=== PATIENT | female | born 1980 | race Caucasian/White ===

== ENCOUNTER 2016-11-08 05:29 | Day surgery (SDC) | payer MEDICAID, OTHER ==
[2016-11-04 11:03] LABS: HEMATOCRIT 43.1 % (36.0-47.0); HEMOGLOBIN 14.5 g/dL (12.0-15.5); HGB HCT DIFFERENCE 0.4; MEAN CORPUSCULAR HEMOGLOBIN 30.7 pg (27.0-33.4); MEAN CORPUSCULAR HGB CONC 33.7 g/dL (32.0-36.0); MEAN CORPUSCULAR VOLUME 91 fl (80-97); RED BLOOD COUNT 4.73 10^6/uL (3.72-5.28); RED CELL DISTRIBUTION WIDTH 13.1 % (11.5-14.0); WHITE BLOOD COUNT 12.5 10^3/uL (4.0-10.5)
[2016-11-04 11:22] LABS: APPEARANCE,URINE SLIGHTLY-CLOUDY; BILIRUBIN,URINE NEGATIVE (NEGATIVE); GLUCOSE, URINE NEGATIVE (NEGATIVE); KETONES,URINE NEGATIVE (NEGATIVE); LEUKOCYTE ESTERASE,URINE NEGATIVE (NEGATIVE); NITRITE,URINE NEGATIVE (NEGATIVE); PROTEIN,URINE NEGATIVE (NEGATIVE); URINE SPECIFIC GRAVITY 1.023; UROBILINOGEN,URINE NEGATIVE mg/dL (<2.0)
[2016-11-04 11:28] LABS: ALANINE AMINOTRANSFERASE 32 U/L (9-52); ALBUMIN 4.5 g/dL (3.5-5.0); ALKALINE PHOSPHATASE 60 U/L (38-126); ANION GAP 14 (5-19); ASPARTATE AMINO TRANSFERASE 20 U/L (14-36); BILIRUBIN,TOTAL 0.5 mg/dL (0.2-1.3); BLOOD UREA NITROGEN 16 mg/dL (7-20); CALCIUM 10.1 mg/dL (8.4-10.2); CARBON DIOXIDE 23 mmol/L (22-30); CHLORIDE 101 mmol/L (98-107); CREATININE RESULT 0.91 mg/dL (0.52-1.25); GLUCOSE 90 mg/dL (75-110); POTASSIUM 4.3 mmol/L (3.6-5.0); TOTAL PROTEIN 7.8 g/dL (6.3-8.2)
--- NOTE | 2016-11-04 18:07 | EKG REPORT ---
SEVERITY:- NORMAL ECG - SINUS RHYTHM : Confirmed by: Melissa Caballero MD 04-Nov-2016 18:06:43
[~2016-11-08 05:29] MED LIST: CEFAZOLIN 2 GM/D5W RTU 2 GM/50 ML RTUPB IV PRN; LACTATED RINGERS 1000 ML IV PRN; LIDOCAINE 0.5% INJ-PF (5 MG/ML) 50 ML SDV SUBCUT PRN
[2016-11-08] MEDS ORDERED: ALBUTEROL SULFATE 0.083% NEB 2.5 MG/3 ML AMPUL NEB ONE (06:16)
[2016-11-08] MEDS ORDERED: FENTANYL CITRATE INJ/PF 250 MCG/5 ML AMPULE ONE (06:27)
[2016-11-08] MEDS ORDERED: PROPOFOL INJ 200 MG/20 ML VIAL IV ONE (06:28)
[2016-11-08] MEDS ORDERED: MIDAZOLAM 2 MG/2 ML INJ ONE (06:28)
[2016-11-08] MEDS ORDERED: EPHEDRINE SULFATE INJ 50 MG/1 ML AMPULE ONE (06:28)
[2016-11-08] MEDS ORDERED: ACETAMINOPHEN 100 ML IV ONE ×3 (06:28→16:00)
[2016-11-08] MEDS ORDERED: FENTANYL CITRATE INJ/PF 100 MCG/2 ML AMPUL ONE ×2 (06:28→10:32)
[2016-11-08] MEDS ORDERED: DEXMEDETOMIDINE INJ 80 MCG/20 ML VIAL IV ONE (06:29)
[2016-11-08] MEDS ORDERED: MORPHINE SULFATE 10 MG/ML INJ ONE (06:29)
[2016-11-08] MEDS ORDERED: SCOPOLAMINE HYDROBROMIDE 1.5 MG PATCH.TD72 ONE (06:51)
[2016-11-08] MEDS ORDERED: FAMOTIDINE INJ/PF 20 MG/2 ML SDV IV ONE (06:52)
[2016-11-08] MEDS ORDERED: MORPHINE SULFATE 10 MG/ML INJ IV PRN (08:23)
[2016-11-08] MEDS ORDERED: DIPHENHYDRAMINE HCL 50 MG/ML VIAL IV PRN (08:23)
[2016-11-08] MEDS ORDERED: PROMETHAZINE HCL INJ 25 MG/1 ML VIAL IV PRN ×2 (08:23)
[2016-11-08] MEDS ORDERED: OXYCODONE-ACETAMINOPHEN 5-325 MG TABLET PO PRN ×2 (08:23)
[2016-11-08] MEDS ORDERED: MEPERIDINE HCL/PF INJ 25 MG/1 ML DISP.SYRIN IV PRN (08:23)
[2016-11-08] MEDS ORDERED: FENTANYL CITRATE INJ/PF 100 MCG/2 ML AMPUL IV PRN ×3 (08:23)
[2016-11-08] MEDS ORDERED: (PENDING PHARMACY ID) (Lisinopril/Hydrochlorothiazide [Lisinopril-Hctz 20-25 Mg Tab] 1 EAC PO SCH (10:00)
[2016-11-08] MEDS ORDERED: LEVOTHYROXINE SODIUM 300 MCG PO SCH (10:00)
--- NOTE | 2016-11-08 10:17 | Operative Report ---
Operative Report DATE OF SURGERY: 11/08/16 PREOPERATIVE DIAGNOSIS: Endometriosis pelvic pain dysmenorrhea POSTOPERATIVE DIAGNOSIS: Same OPERATION: ARIEL/BSO SURGEON: WILNER AGUSTIN ELECTROMATIC TYPIST: OR staff ANESTHESIA: GA TISSUE REMOVED OR ALTERED: Uterus tubes and ovaries COMPLICATIONS: None ESTIMATED BLOOD LOSS: 1 25 mL INTRAOPERATIVE FINDINGS: Normal female pelvis PROCEDURE: The patient was taken the OR and placed in supine position. Gen. anesthesia was induced. She is placed in a dorsal lithotomy position using Teofilo stirrups. She is placed in deep lithotomy position in preparation for robotic procedure. She did not tolerate the deep lithotomy. Anesthesia stated they could not do the case because of ventilation problems. We repositioned the patient into a supine position. Her vagina perineum and abdomen were prepared and draped in sterile fashion. A low transverse incision was made and carried down the level of fascia which was nicked in the midline. The fascial incision was extended bilaterally using curved Cuevas scissors. The fascia was off the rectus muscles using sharp and blunt dissection. Peritoneum was entered without incident. Peritoneal incision was extended taking care not to injure bladder. A Mobius retractor was placed. The bowel contents were packed back with 3 moist lap sponges. View of the pelvis was quite good. The ovaries were inspected bilaterally the ureters could be seen peristalsing well away from the pedicle sites. Next the uterus was grasped with Lyly thyroid clamp. The round ligaments were clamped and cauterized and ligated using the LigaSure device. The anterior leaf of the broad ligament was incised with Metzenbaum scissors creating a bladder flap. Bladder was sharply and bluntly dissected off the anterior aspect of the cervix. Posterior leaf was incised isolating the infundibulopelvic pedicles. The infundibulopelvic pedicles were clamped ligated and cut with the LigaSure device. The ovaries and tubes were passed off field. The broad ligament was then clamped cauterized and cut with the LigaSure device staying close to the uterine body. Uterine arteries were skeletonized bilaterally and then the uterine artery arteries were clamped cauterized and cut with LigaSure device. The cardinal ligaments were clamped cut and ligated bilaterally using straight Jessie clamps and transfixation suture of 0 Vicryl. Upon reaching the inferior portion of the cervix the vaginal angles were clamped bilaterally with curved Jessie clamps cut and ligated with transfixation suture of 0 Vicryl. The cervix was excised free from the vaginal cuff. Vaginal cuff was closed with a running locking layer of 0 Vicryl. Pelvis was irrigated and suctioned free fluid hemostasis was good at all pedicles. The ureters could be seen peristalsing and were not dilated in the pelvis. Lap sponges and Mobius retractor were removed. Anterior abdominal wall peritoneum was closed with a 2-0 chromic stitch. Subfascial tissues were inspected for bleeding and the fascia was closed with a running 0 Vicryl in 2 segments. Wound was irrigated and suctioned free of fluid hemostasis was assured. The subcutaneous layer was closed with a running suture of 20 plain gut. Skin was closed with a running subcuticular 4-0 undyed Vicryl stitch. Wound was dressed.
[2016-11-08] MEDS ORDERED: ONDANSETRON 4 MG TAB.RAPDIS SL PRN (11:09)
[2016-11-08] MEDS ORDERED: HYDROMORPHONE HCL INJ/PF 2 MG/ML AMPULE IV PRN ×4 (11:11→18:42)
[2016-11-08] MEDS ORDERED: HYDROMORPHONE HCL 2 MG TABLET PO PRN ×4 (11:12→12:01)
[2016-11-08] MEDS ORDERED: ONDANSETRON 4 MG TAB.RAPDIS PO PRN (11:56)
[2016-11-08] MEDS ORDERED: PHENYLEPHRINE HCL INJ/PF 10 MG/1 ML SDV ONE (12:25)
[2016-11-08] MEDS: HYDROMORPHONE HCL INJ/PF 2 MG/ML AMPULE IV PRN ×2 (12:25→17:31)
[2016-11-08] MEDS ORDERED: SUCCINYLCHOLINE CHLORIDE INJ 200 MG/10 ML VIAL ONE (12:25)
[2016-11-08] MEDS ORDERED: LIDOCAINE 2% INJ-PF (20 MG/ML) 10 ML AMPUL ONE (12:25)
[2016-11-08] MEDS ORDERED: GLYCOPYRROLATE INJ 0.4 MG/2 ML VIAL ONE (12:25)
[2016-11-08] MEDS ORDERED: ROCURONIUM BROMIDE INJ 50 MG/5 ML VIAL IV ONE (12:25)
[2016-11-08] MEDS ORDERED: DEXAMETHASONE SOD PHOSPHATE INJ 4 MG/1 ML VIAL ONE (12:25)
[2016-11-08] MEDS ORDERED: ONDANSETRON HCL INJ/PF 4 MG/2 ML SDV ONE (12:25)
[2016-11-08] MEDS ORDERED: NEOSTIGMINE METHYLSULFATE 10 MG/10 ML VIAL ONE (12:25)
[2016-11-08] MEDS ORDERED: KETOROLAC TROMETHAMINE 60 MG/2 ML SDV ONE (12:25)
[2016-11-08] MEDS ORDERED: RINGERS SOLUTION,LACTATED 1,000 ML IV PRN (12:30)
[2016-11-08] MEDS ORDERED: LEVOTHYROXINE SODIUM 0.15 MG TABLET PO ONE (13:00)
[2016-11-08] MEDS ORDERED: HYDROCHLOROTHIAZIDE 25 MG TABLET PO ONE (13:00)
[2016-11-08] MEDS ORDERED: LISINOPRIL 10 MG TABLET PO ONE (13:00)
[2016-11-08] MEDS: SERTRALINE HCL 50 MG TABLET PO SCH (13:01)
[2016-11-08] MEDS: VARENICLINE TARTRATE 0.5 MG TABLET PO SCH ×2 (13:01→17:48)
[2016-11-08] MEDS ORDERED: INFLUENZA ADLT QUAD (36MOS+) 2016-17 VAC 0.5 ML SYR IM PRN (15:04)
[2016-11-08 15:55] LABS: HEMOGLOBIN 13.2 g/dL (12.0-15.5); HGB HCT DIFFERENCE 0.6; MEAN CORPUSCULAR HGB CONC 33.9 g/dL (32.0-36.0); MEAN CORPUSCULAR VOLUME 91 fl (80-97); RED BLOOD COUNT 4.27 10^6/uL (3.72-5.28); RED CELL DISTRIBUTION WIDTH 13.3 % (11.5-14.0); WHITE BLOOD COUNT 16.3 10^3/uL (4.0-10.5)
[2016-11-08 16:21] LABS: ANION GAP 11 (5-19); BLOOD UREA NITROGEN 14 mg/dL (7-20); CALCIUM 9.6 mg/dL (8.4-10.2); CARBON DIOXIDE 25 mmol/L (22-30); CHLORIDE 101 mmol/L (98-107); CREATININE RESULT 0.97 mg/dL (0.52-1.25); GLUCOSE 135 mg/dL (75-110); POTASSIUM 4.6 mmol/L (3.6-5.0); SODIUM 137.1 mmol/L (137-145)
[2016-11-08] MEDS: ARIPIPRAZOLE 5 MG TABLET PO SCH (21:50)
[2016-11-08] MEDS: OXYCODONE-ACETAMINOPHEN 5-325 MG TABLET PO PRN (23:02)
[2016-11-09] MEDS: OXYCODONE-ACETAMINOPHEN 5-325 MG TABLET PO PRN ×3 (06:42→23:44)
[2016-11-09 07:21] LABS: HEMATOCRIT 36.9 % (36.0-47.0); HEMOGLOBIN 12.4 g/dL (12.0-15.5); HGB HCT DIFFERENCE 0.3; MEAN CORPUSCULAR HEMOGLOBIN 30.9 pg (27.0-33.4); MEAN CORPUSCULAR HGB CONC 33.6 g/dL (32.0-36.0); MEAN CORPUSCULAR VOLUME 92 fl (80-97); RED BLOOD COUNT 4.01 10^6/uL (3.72-5.28); RED CELL DISTRIBUTION WIDTH 13.1 % (11.5-14.0); WHITE BLOOD COUNT 17.6 10^3/uL (4.0-10.5)
[2016-11-09 07:36] LABS: ANION GAP 11 (5-19); BLOOD UREA NITROGEN 12 mg/dL (7-20); CALCIUM 9.4 mg/dL (8.4-10.2); CARBON DIOXIDE 24 mmol/L (22-30); CHLORIDE 102 mmol/L (98-107); CREATININE RESULT 0.94 mg/dL (0.52-1.25); GLUCOSE 144 mg/dL (75-110); POTASSIUM 4.3 mmol/L (3.6-5.0); SODIUM 137.1 mmol/L (137-145)
[2016-11-09] MEDS: SERTRALINE HCL 50 MG TABLET PO SCH (09:20)
[2016-11-09] MEDS: IBUPROFEN 800 MG TABLET PO SCH ×2 (09:21→17:42)
[2016-11-09] MEDS: VARENICLINE TARTRATE 0.5 MG TABLET PO SCH ×2 (09:23→17:43)
[2016-11-09] MEDS: LEVOTHYROXINE SODIUM 0.15 MG TABLET PO SCH (09:24)
[2016-11-09] MEDS: HYDROCHLOROTHIAZIDE 25 MG TABLET PO SCH (09:29)
[2016-11-09] MEDS: LISINOPRIL 10 MG TABLET PO SCH (09:29)
--- NOTE | 2016-11-09 09:54 | PDOC PROGRESS REPORT ---
Subjective Progress Note for:: 11/09/16 Subjective:: She is doing well today. Physical Exam - Physical Exam Vital Signs: Temp Pulse Resp BP Pulse Ox 98.1 F 55 L 17 88/52 L 96 11/09/16 08:21 11/09/16 08:21 11/09/16 08:21 11/09/16 08:21 11/09/16 08:21 Intake & Output 11/08/16 11/09/16 11/10/16 06:59 06:59 06:59 Intake Total 0 4735 Output Total 1025 Balance 0 3710 Weight 123.83 kg General appearance: PRESENT: no acute distress Head exam: PRESENT: atraumatic GI/Abdominal exam: PRESENT: normal bowel sounds, soft. ABSENT: distended, guarding, mass, organolmegaly, rebound, tenderness Result Laboratory Results: 11/09/16 06:25 11/09/16 06:25 11/08/16 11/08/16 11/09/16 15:40 15:40 06:25 WBC 16.3 H 17.6 H RBC 4.27 4.01 Hgb 13.2 12.4 Hct 39.0 36.9 MCV 91 92 MCH 31.0 30.9 MCHC 33.9 33.6 RDW 13.3 13.1 Plt Count 273 288 Sodium 137.1 Potassium 4.6 Chloride 101 Carbon Dioxide 25 Anion Gap 11 BUN 14 Creatinine 0.97 Est GFR ( Amer) > 60 Est GFR (Non-Af Amer) > 60 Glucose 135 H Calcium 9.6 11/09/16 06:25 WBC RBC Hgb Hct MCV MCH MCHC RDW Plt Count Sodium 137.1 Potassium 4.3 Chloride 102 Carbon Dioxide 24 Anion Gap 11 BUN 12 Creatinine 0.94 Est GFR ( Amer) > 60 Est GFR (Non-Af Amer) > 60 Glucose 144 H Calcium 9.4 Impressions: Chest X-Ray 11/04/16 10:17 IMPRESSION: NO SIGNIFICANT RADIOGRAPHIC FINDING IN THE CHEST. Assessment & Plan - Diagnosis (1) Pelvic pain Is this a current diagnosis for this admission?: YesPlan: continue care today and likely home tomorrow.
[2016-11-09] MEDS ORDERED: IBUPROFEN 800 MG TABLET PO SCH (10:00)
[2016-11-09] MEDS ORDERED: OXYCODONE-ACETAMINOPHEN 5-325 MG TABLET PO PRN (18:06)
[2016-11-09] MEDS ORDERED: BENZOCAINE/MENTHOL SORE THROAT LOZENGE BUCCAL PRN (18:07)
[2016-11-09] MEDS: ARIPIPRAZOLE 5 MG TABLET PO SCH (22:04)
--- NOTE | 2016-11-10 06:11 | PDOC PROGRESS REPORT ---
Subjective Progress Note for:: 11/10/16 Physical Exam - Physical Exam Vital Signs: Temp Pulse Resp BP Pulse Ox 98.0 F 62 16 92/48 L 96 11/10/16 04:00 11/10/16 04:00 11/10/16 04:00 11/10/16 04:00 11/10/16 04:00 Intake & Output 11/08/16 11/09/16 11/10/16 06:59 06:59 06:59 Intake Total 0 4735 900 Output Total 1025 600 Balance 0 3710 300 Weight 123.83 kg General appearance: PRESENT: no acute distress - Incision is clean dry and intact, well-developed, well-nourished Result Laboratory Results: 11/09/16 06:25 11/09/16 06:25 11/09/16 11/09/16 06:25 06:25 WBC 17.6 H RBC 4.01 Hgb 12.4 Hct 36.9 MCV 92 MCH 30.9 MCHC 33.6 RDW 13.1 Plt Count 288 Sodium 137.1 Potassium 4.3 Chloride 102 Carbon Dioxide 24 Anion Gap 11 BUN 12 Creatinine 0.94 Est GFR ( Amer) > 60 Est GFR (Non-Af Amer) > 60 Glucose 144 H Calcium 9.4 Impressions: Chest X-Ray 11/04/16 10:17 IMPRESSION: NO SIGNIFICANT RADIOGRAPHIC FINDING IN THE CHEST. Assessment & Plan - Diagnosis (1) Pelvic pain Is this a current diagnosis for this admission?: Yes - Plan Summary Plan Summary: She's doing well ambulating and taking oral pain medication. Plan is to discharge to home later today and follow up in 1 week.
--- NOTE | 2016-11-10 06:58 | DISCHARGE SUMMARY E ---
Discharge Summary NAME: MORELIA SR : 1980 AGE: 36Y ADMITTED: 11/08/2016 DISCHARGED: 11/09/2016 HOSPITAL COURSE: The patient was admitted on 11/08 for a hysterectomy. She has a history of endometriosis with pelvic pain. This was performed. Please see the operative report. Night of surgery, she did well. Following day, she continued to progress and was able to discharge home on postop day 2 in good condition. She will follow up in 2 weeks. Percocet and Premarin were given. DICTATING PHYSICIAN: WILNER CAI M.D. [id number] PHY#: [id number] ID: [id number] JOB#: [id number] ACCT: [id number] cc:WILNER CAI M.D. >
[2016-11-10] MEDS: OXYCODONE-ACETAMINOPHEN 5-325 MG TABLET PO PRN ×2 (07:54→14:50)
[2016-11-10] MEDS: IBUPROFEN 800 MG TABLET PO SCH (09:07)
[2016-11-10] MEDS: LISINOPRIL 10 MG TABLET PO SCH (09:07)
[2016-11-10] MEDS: SERTRALINE HCL 50 MG TABLET PO SCH (09:07)
[2016-11-10] MEDS: LEVOTHYROXINE SODIUM 0.15 MG TABLET PO SCH (09:08)
[2016-11-10] MEDS: VARENICLINE TARTRATE 0.5 MG TABLET PO SCH (09:08)
[2016-11-10] MEDS: HYDROCHLOROTHIAZIDE 25 MG TABLET PO SCH (09:08)
[2016-11-10 16:23] VITALS: BP 92/48
== END 2016-11-10 17:30 | disposition home or self-care (01) ==
LOC: OROUT 05:29 → 2N 11:14 → OROUT 11-10 17:30
PROVIDERS: ATTEND Obstetrics & Gynecology
PROC: 0UTC0ZZ Resection of Cervix, Open Approach (ICD-10-PCS; 2016-11-08)
PROC: 0UT20ZZ Resection of Bilateral Ovaries, Open Approach (ICD-10-PCS; 2016-11-08)
PROC: 0UT70ZZ Resection of Bilateral Fallopian Tubes, Open Approach (ICD-10-PCS; 2016-11-08)
PROC: 0UT90ZZ Resection of Uterus, Open Approach (ICD-10-PCS; principal; 2016-11-08 07:30)
DX: N72 Inflammatory disease of cervix uteri (principal); N80.0 Endometriosis of uterus; N73.6 Female pelvic peritoneal adhesions (postinfective); N83.8 Other noninflammatory disorders of ovary, fallopian tube and broad ligament; N80.2 Endometriosis of fallopian tube; R10.2 Pelvic and perineal pain; Z23 Encounter for immunization; I10 Essential (primary) hypertension; F17.210 Nicotine dependence, cigarettes, uncomplicated; Z79.899 Other long term (current) drug therapy; J45.909 Unspecified asthma, uncomplicated; M19.90 Unspecified osteoarthritis, unspecified site
CPT/HCPCS: 93005; 86900; 86901; 36415 ×2; 86850; 84132; 85027 ×2; 81025; 80048; 80053; 81001; 88307 ×2; 71020; 90686; 93010; 94640; 58150; J2250; J3490 ×18; J1100; J1885; J3010 ×2; J2270; J1170 ×2; J2370; J0330; J2405; J2704; S0028; J0690; J0131; 840

== ENCOUNTER 2016-12-11 18:11 | Inpatient (IN) | payer MEDICAID ==
[2016-12-11] MEDS ORDERED: VANCOMYCIN HCL INJ 1000 MG VIAL IV ONE (18:32)
[2016-12-11] MEDS ORDERED: AMPICILLIN SOD/SULBACTAM 3 GM VIAL IV ONE (18:33)
[2016-12-11] MEDS ORDERED: NORMAL SALINE 1000 ML 1,000 ML IV ONE (18:33)
--- NOTE | 2016-12-11 18:42 | ER Document Report ---
ED Medical Screen (RME) - General Chief Complaint: Post Surgical Pain Stated Complaint: POST OP PROBLEM TRAVEL OUTSIDE OF THE [place] IN LAST 30 DAYS: No - HPI Patient complains to provider of: wound dehiscence abdominal pain Notes: 12/11/16 18:41 Hysterectomy October now having difficulty with the wound. Patient is very obese - Related Data Allergies/Adverse Reactions: No Known Allergies Allergy (Verified 12/11/16 18:14) Past Medical History - Past Medical History Cardiac Medical History: Reports: Hx Hypertension Denies: Hx Coronary Artery Disease, Hx Heart Attack Pulmonary Medical History: Reports: Hx Asthma, Hx Bronchitis Denies: Hx COPD, Hx Pneumonia Neurological Medical History: Denies: Hx Cerebrovascular Accident, Hx Seizures Renal/ Medical History: Denies: Hx Peritoneal Dialysis Musculoskeltal Medical History: Reports Hx Arthritis - Generalized - Immunizations Hx Diphtheria, Pertussis, Tetanus Vaccination: Yes - Tetanus Review of Systems - Review of Systems Constitutional: Other - Postop wound troubles Physical Exam - Vital signs Vitals: Temp Pulse Resp BP Pulse Ox 98.3 F 93 17 128/103 H 100 12/11/16 18:16 12/11/16 18:16 12/11/16 18:16 12/11/16 18:16 12/11/16 18:16 - Abdominal Inspection: Obese - No increased pain this with red streaking from hysterectomy site Course - Vital Signs Vital signs: Temp Pulse Resp BP Pulse Ox 98.3 F 93 17 128/103 H 100 12/11/16 18:16 12/11/16 18:16 12/11/16 18:16 12/11/16 18:16 12/11/16 18:16
[2016-12-11 18:45] LABS: ABSOLUTE BASOPHILS # (AUTO) 0.1 10^3/uL (0.0-0.2); ABSOLUTE EOSINOPHILS # (AUTO) 0.8 10^3/uL (0.0-0.6); ABSOLUTE MONOCYTES (AUTO) 1.1 10^3/uL (0.1-1.4); ABSOLUTE NEUT (AUTO) 4.8 10^3/uL (1.7-8.2); BASOPHILS % (AUTO) 0.6 % (0-2); EOSINOPHILS % (AUTO) 8.6 % (0-6); HEMATOCRIT 40.4 % (36.0-47.0); HEMOGLOBIN 13.7 g/dL (12.0-15.5); HGB HCT DIFFERENCE 0.7; LYMPHOCYTES % (AUTO) 30.6 % (13-45); MEAN CORPUSCULAR HEMOGLOBIN 31.1 pg (27.0-33.4); MEAN CORPUSCULAR HGB CONC 33.9 g/dL (32.0-36.0); MEAN CORPUSCULAR VOLUME 92 fl (80-97); MONOCYTES % (AUTO) 10.9 % (3-13); RED BLOOD COUNT 4.39 10^6/uL (3.72-5.28); RED CELL DISTRIBUTION WIDTH 13.8 % (11.5-14.0); SEGMENTED NEUTROPHILS % (AUTO) 49.3 % (42-78); WHITE BLOOD COUNT 9.8 10^3/uL (4.0-10.5)
--- NOTE | 2016-12-11 18:49 | ER Document Report ---
ED GI/ - General Chief Complaint: Post Surgical Pain Stated Complaint: POST OP PROBLEM Notes: Patient is a 36-year-old female who presents emergency Department with complaints of incision dehiscence. Patient is postop from total abdominal hysterectomy on 11/08/[address] Jimy Carr here in [facility]. She states that she did well at her initial follow-up visit that was postop week on and otherwise has been at home. She states that she noticed wound dehiscence about 6 days ago and the second one she is not quite sure. She states that she's had redness spreading from her incision over the past 6 days that's causing pain. She denies any deep abdominal pain denies any nausea or vomiting, constipation or diarrhea. Last bowel movement was this morning and was normal. She denies any fevers but she admits to chills. TRAVEL OUTSIDE OF THE [place] IN LAST 30 DAYS: No - Related Data Allergies/Adverse Reactions: No Known Allergies Allergy (Verified 12/11/16 18:14) Past Medical History - Social History Smoking Status: Current Every Day Smoker Family History: Reviewed & Not Pertinent Patient has suicidal ideation: No Patient has homicidal ideation: No - Past Medical History Cardiac Medical History: Reports: Hx Hypertension Denies: Hx Coronary Artery Disease, Hx Heart Attack Pulmonary Medical History: Reports: Hx Asthma, Hx Bronchitis Denies: Hx COPD, Hx Pneumonia Neurological Medical History: Denies: Hx Cerebrovascular Accident, Hx Seizures Renal/ Medical History: Denies: Hx Peritoneal Dialysis Musculoskeltal Medical History: Reports Hx Arthritis - Generalized - Immunizations Hx Diphtheria, Pertussis, Tetanus Vaccination: Yes - Tetanus Review of Systems - Review of Systems Constitutional: No symptoms reported Gastrointestinal: No symptoms reported Skin: See HPI Physical Exam - Vital signs Vitals: Temp Pulse Resp BP Pulse Ox 98.3 F 93 17 128/103 H 100 12/11/16 18:16 12/11/16 18:16 12/11/16 18:16 12/11/16 18:16 12/11/16 18:16 - Notes Notes: PHYSICAL EXAM GENERAL: Alert, interacts well. HEAD: Normocephalic, atraumatic. EYES: Pupils equal, round, and reactive to light. Extraocular movements intact. ENT: Oral mucosa moist, tongue midline. NECK: Full range of motion. Supple. Trachea midline. LUNGS: Clear to auscultation bilaterally, no wheezes, rales, or rhonchi. No respiratory distress. HEART: Regular rate and rhythm. No murmurs, gallops, or rubs. ABDOMEN: Soft, nondistended, nontender. No guarding, rebound, or rigidity.. Bowel sounds present in all 4 quadrants. EXTREMITIES: Moves all 4 extremities spontaneously. No edema, radial and dorsalis pedis pulses 2/4 bilaterally. No cyanosis. NEUROLOGICAL: Alert and oriented x4. Normal speech. PSYCH: Normal affect, normal mood. SKIN: Warm, dry, normal turgor. Evidence of wound dehiscence at the lateral edges of the hysterectomy incision. Both wound has since his are no more than 1 inch in length with visible TM/clear drainage. Tender to touch. Surrounding cellulitis expanding over her entire pannus up to her belly button into both hips. Course - Re-evaluation Re-evalutation: 12/11/16 22:05 Patient is a 36-year-old female is hemodynamically stable, no acute distress and afebrile. Patient was sent over from [facility] where laboratory studies as well as CT scan were ordered. CT of the abdomen and pelvis reveals 2 fluid-filled spaces of the subcutaneous tissue with surrounding cellulitis. Both of these fluid-filled areas are no greater than 2 x 3 cm. After these findings are discussed with supervising physician Dr. Jaciel Pena who is recommended consultation to [employer]IC[employer]ED [employer]UCLE[employer] CONTR[employer] ROOM OPERATOR on-call. I have called Dr. Olga Sheikh to discuss findings a CT as well as physical exam findings, she agrees with hospital admission for evaluation of her complaint as well as IV antibiotics. Discussed this plan with patient who is agreeable. At this time she still remained stable will admit to second floor. Per [facility] protocol and guidelines, this case was discussed with supervising physician Dr. Jaciel Pena prior to admission - Vital Signs Vital signs: Temp Pulse Resp BP Pulse Ox 98.3 F 86 16 118/71 100 12/11/16 20:46 12/11/16 20:46 12/11/16 20:46 12/11/16 20:46 12/11/16 18:16 - Laboratory Result Diagrams: 12/11/16 18:35 12/11/16 18:35 Laboratory results interpreted by me: 12/11/16 12/11/16 18:35 18:55 Eosinophils % 8.6 H Absolute Eosinophils 0.8 H Urine Blood SMALL H Ur Leukocyte Esterase TRACE H - Diagnostic Test Radiology reviewed: Image reviewed, Reports reviewed Discharge - Discharge Clinical Impression: Cellulitis, Abscess Disposition: ADMITTED INPATIENT Admitting Provider: [facility] Admitted: Medical Floor - second floor per Dr. Sheikh
[2016-12-11 18:59] LABS: PROTHROMBIN TIME 11.8 SEC (11.4-15.4)
[2016-12-11 19:04] LABS: ALANINE AMINOTRANSFERASE 37 U/L (9-52); ALBUMIN 4.3 g/dL (3.5-5.0); ALKALINE PHOSPHATASE 66 U/L (38-126); ANION GAP 10 (5-19); ASPARTATE AMINO TRANSFERASE 27 U/L (14-36); BILIRUBIN,DIRECT 0.2 mg/dL (0.0-0.4); BILIRUBIN,TOTAL 0.7 mg/dL (0.2-1.3); BLOOD UREA NITROGEN 14 mg/dL (7-20); CALCIUM 9.9 mg/dL (8.4-10.2); CARBON DIOXIDE 28 mmol/L (22-30); CHLORIDE 106 mmol/L (98-107); GLUCOSE 100 mg/dL (75-110); LIPASE 111.4 U/L (23-300); POTASSIUM 4.1 mmol/L (3.6-5.0); SODIUM 143.6 mmol/L (137-145); TOTAL PROTEIN 7.4 g/dL (6.3-8.2)
[2016-12-11 19:51] LABS: APPEARANCE,URINE SLIGHTLY-CLOUDY; BILIRUBIN,URINE NEGATIVE (NEGATIVE); GLUCOSE, URINE NEGATIVE (NEGATIVE); KETONES,URINE NEGATIVE (NEGATIVE); LEUKOCYTE ESTERASE,URINE TRACE (NEGATIVE); NITRITE,URINE NEGATIVE (NEGATIVE); PROTEIN,URINE NEGATIVE (NEGATIVE); URINE SPECIFIC GRAVITY 1.026; UROBILINOGEN,URINE NEGATIVE mg/dL (<2.0)
[2016-12-11] MEDS ORDERED: MORPHINE SULFATE 10 MG/ML INJ IV ONE (20:38)
[2016-12-12] MEDS ORDERED: IBUPROFEN 600 MG TABLET PO PRN (01:08)
[2016-12-12] MEDS: RINGERS SOLUTION,LACTATED 1,000 ML IV PRN ×3 (01:30→22:14)
[2016-12-12] MEDS: OXYCODONE-ACETAMINOPHEN 5-325 MG TABLET PO PRN ×3 (01:30→18:00)
[2016-12-12] MEDS: ZOLPIDEM TARTRATE 5 MG TABLET PO PRN (02:04)
--- NOTE | 2016-12-12 02:04 | PDOC H&P ---
History of Present Illness Admission Date/PCP: 12/11/16 20:34 ENOCH BOSS MD Patient complains of: abdominal pain and incisional drainage History of Present Illness: MORELIA SR is a 36 year old female P4 who is s/p [facility] 11/08/16 who presents with history of drainage beginning last week with worsening pain under naval. Her post op appointment is scheduled for [facility] 12/12/16. She did not call MD about the drainage. She reports no bleeding, fever, nausea, vomiting, diarrhea, constipation, urinary symptoms. She denies any other symptoms as well. Past Medical History Cardiac Medical History: Reports: Hypertension Denies: Coronary Artery Disease, Myocardial Infarction Pulmonary Medical History: Reports: Asthma, Bronchitis Denies: Chronic Obstructive Pulmonary Disease (COPD), Pneumonia Neurological Medical History: Denies: Seizures Endocrine Medical History: Reports: Hypothyroidism Musculoskeltal Medical History: Reports: Arthritis - Generalized Psychiatric Medical History: Reports: Depression Past Surgical History Past Surgical History: Reports: Hysterectomy Social History Smoking Status: Current Every Day Smoker Cigarettes Packs Per Day: 0.5 Number of Years Smokin Last Time Smoked: 12/11/2016 Frequency of Alcohol Use: Occasional Hx Recreational Drug Use: No Drugs: None Hx Prescription Drug Abuse: No - Advance Directive Resuscitation Status: Full Code Family History Family History: Reviewed & Not Pertinent Parental Family History Reviewed: Yes Children Family History Reviewed: Yes Sibling(s) Family History Reviewed.: Yes Medication/Allergy Home Medications: Aripiprazole [Abilify 5 mg Tablet] 5 mg PO QHS 11/09/16 Levothyroxine Sodium [Synthroid] 300 mcg PO DAILY 11/09/16 Lisinopril/Hydrochlorothiazide [Lisinopril-Hctz 20-25 mg Tab] 1 each PO DAILY Meloxicam [Mobic 15 mg Tablet] 15 mg PO DAILY 11/09/16 Sertraline HCl [Zoloft] 100 mg PO DAILY 11/09/16 Varenicline Tartrate [Chantix] 1 each PO .ASDIR 11/09/16 Allergies/Adverse Reactions: No Known Allergies Allergy (Verified 12/11/16 18:14) Review of Systems All systems: reviewed and no additional remarkable complaints except as stated - as above Physical Exam - Physical Exam Vital Signs: Temp Pulse Resp BP Pulse Ox 98.1 F 82 20 119/78 99 12/11/16 21:49 12/11/16 21:49 12/11/16 21:49 12/11/16 21:49 12/11/16 21:49 Intake & Output 12/10/16 12/11/16 12/12/16 06:59 06:59 06:59 Weight 130.4 kg General appearance: PRESENT: no acute distress, cooperative Respiratory exam: PRESENT: clear to auscultation alicia Cardiovascular exam: PRESENT: RRR GI/Abdominal exam: PRESENT: normal bowel sounds, soft, tenderness - minmal tenderness over erythema which extends from superior incision almost to naval. Incision is intact except for 2 areas bilaterally each 1-2 cm. no active drainage now.. ABSENT: distended, guarding, mass, organolmegaly, rebound Result Impressions: Abdomen/Pelvis CT 12/11/16 18:32 IMPRESSION: Small 2 x 3 cm fluid pockets are present left and right of midline in the subcutaneous soft tissue near the previous incision. No definite abscess. Otherwise no acute intra-abdominal findings. Assessment & Plan - Diagnosis (1) Cellulitis, wound, post-operative Qualifiers: Encounter type: subsequent encounter Qualified Code(s): T81.4XXD - Infection following a procedure, subsequent encounter Is this a current diagnosis for this admission?: YesPlan: iv antibiotics as well as pain mgmt. - Time Time Spent: 30 to 50 Minutes Critical Time spent with patient: Less than 15 minutes Medications reviewed and adjusted accordingly: Yes - Inpatient Certification Based on my medical assessment, after consideration of the patient's comorbidities, presenting symptoms, or acuity I expect that the services needed warrant INPATIENT care.: Yes I certify that my determination is in accordance with my understanding of Medicare's requirements for reasonable and necessary INPATIENT services [42 CFR 412.3e].: Yes Medical Necessity: Need Close Monitoring Due to Risk of Patient Decompensation, Need For IV Fluids, Need for Pain Control, Need for IV Antibiotics, Risk of Complication if Not Cared For in Hospital
[2016-12-12] MEDS ORDERED: CEFAZOLIN 2 GM/D5W RTU 50 ML IV SCH (06:00)
[2016-12-12 06:46] LABS: ABSOLUTE BASOPHILS # (AUTO) 0.1 10^3/uL (0.0-0.2); ABSOLUTE EOSINOPHILS # (AUTO) 0.9 10^3/uL (0.0-0.6); ABSOLUTE LYMPHOCYTES (AUTO) 2.4 10^3/uL (0.5-4.7); ABSOLUTE NEUT (AUTO) 4.2 10^3/uL (1.7-8.2); BASOPHILS % (AUTO) 0.7 % (0-2); EOSINOPHILS % (AUTO) 10.3 % (0-6); HEMATOCRIT 36.8 % (36.0-47.0); HEMOGLOBIN 12.5 g/dL (12.0-15.5); HGB HCT DIFFERENCE 0.7; LYMPHOCYTES % (AUTO) 28.3 % (13-45); MEAN CORPUSCULAR HEMOGLOBIN 31.5 pg (27.0-33.4); MEAN CORPUSCULAR HGB CONC 33.8 g/dL (32.0-36.0); MEAN CORPUSCULAR VOLUME 93 fl (80-97); MONOCYTES % (AUTO) 11.3 % (3-13); RED BLOOD COUNT 3.95 10^6/uL (3.72-5.28); RED CELL DISTRIBUTION WIDTH 13.9 % (11.5-14.0); SEGMENTED NEUTROPHILS % (AUTO) 49.4 % (42-78); WHITE BLOOD COUNT 8.5 10^3/uL (4.0-10.5)
[2016-12-12] MEDS ORDERED: SUCCINYLCHOLINE CHLORIDE INJ 200 MG/10 ML VIAL ONE (08:38)
[2016-12-12] MEDS ORDERED: ONDANSETRON HCL INJ/PF 4 MG/2 ML SDV ONE (08:38)
[2016-12-12] MEDS ORDERED: ROCURONIUM BROMIDE INJ 50 MG/5 ML VIAL IV ONE (08:38)
[2016-12-12] MEDS ORDERED: GLYCOPYRROLATE INJ 0.4 MG/2 ML VIAL ONE (08:38)
[2016-12-12] MEDS ORDERED: METOCLOPRAMIDE HCL INJ/PF 10 MG/2 ML SDV ONE (08:38)
[2016-12-12] MEDS ORDERED: NEOSTIGMINE METHYLSULFATE 10 MG/10 ML VIAL ONE (08:38)
[2016-12-12] MEDS ORDERED: LIDOCAINE 2% INJ-PF (20 MG/ML) 10 ML AMPUL ONE (08:38)
--- NOTE | 2016-12-12 09:57 | PDOC PROGRESS REPORT ---
Subjective Progress Note for:: 12/12/16 Subjective:: no n/v/d. denies fever, continues to c/o abdominal pain. Physical Exam - Physical Exam Vital Signs: Temp Pulse Resp BP Pulse Ox 98.1 F 76 16 113/76 97 12/12/16 08:21 12/12/16 08:21 12/12/16 08:21 12/12/16 08:21 12/12/16 08:21 Intake & Output 12/11/16 12/12/16 12/13/16 06:59 06:59 06:59 Weight 130.4 kg General appearance: PRESENT: no acute distress, well-developed, well-nourished Respiratory exam: PRESENT: clear to auscultation alicia, symmetrical Cardiovascular exam: PRESENT: RRR. ABSENT: diastolic murmur, rubs, systolic murmur Pulses: PRESENT: other - nl, no SCDs on GI/Abdominal exam: PRESENT: normal bowel sounds, tenderness - thourghout abdomen ttp - superficial ttp, firm area surrounding Rectal exam: PRESENT: deferred Extremities exam: PRESENT: full ROM. ABSENT: calf tenderness, clubbing, pedal edema Neurological exam: PRESENT: alert, awake, oriented to person, oriented to place , oriented to time, oriented to situation, CN II-XII grossly intact. ABSENT: motor sensory deficit Psychiatric exam: PRESENT: appropriate affect, normal mood. ABSENT: homicidal ideation, suicidal ideation Skin exam: PRESENT: erythema, mottled - warm mottled appearance to lower abd with induration at incision. some streaking extending above incision to umbilicus, warm Result Laboratory Results: 12/12/16 06:42 12/12/16 06:42 WBC 8.5 RBC 3.95 Hgb 12.5 Hct 36.8 MCV 93 MCH 31.5 MCHC 33.8 RDW 13.9 Plt Count 184 Seg Neutrophils % 49.4 Lymphocytes % 28.3 Monocytes % 11.3 Eosinophils % 10.3 H Basophils % 0.7 Absolute Neutrophils 4.2 Absolute Lymphocytes 2.4 Absolute Monocytes 1.0 Absolute Eosinophils 0.9 H Absolute Basophils 0.1 Impressions: Abdomen/Pelvis CT 12/11/16 18:32 IMPRESSION: Small 2 x 3 cm fluid pockets are present left and right of midline in the subcutaneous soft tissue near the previous incision. No definite abscess. Otherwise no acute intra-abdominal findings. Status: Imported from PACS Assessment & Plan - Diagnosis (1) Cellulitis, wound, post-operative Qualifiers: Encounter type: subsequent encounter Qualified Code(s): T81.4XXD - Infection following a procedure, subsequent encounter Is this a current diagnosis for this admission?: YesPlan: Pt is currently on Ancef. Will change to Zosyn. D/w pt that may need to open incision to drain fluid present as not on CT scan. D/w Provider who operated on pt for ARIEL/BSO on 11/08/2016. He agrees with change of abx and would like Sugicalist consult to evaluate if wound needs to be opened. Will notify surgicalist consult. Appreciate their assistance with patient. Home meds continued. SCDs requested. - Time Time Spent with patient: Less than 15 minutes Medications reviewed and adjusted accordingly: Yes Anticipated discharge: Home Within: within 48 hours - Inpatient Certification Based on my medical assessment, after consideration of the patient's comorbidities, presenting symptoms, or acuity I expect that the services needed warrant INPATIENT care.: Yes I certify that my determination is in accordance with my understanding of Medicare's requirements for reasonable and necessary INPATIENT services [42 CFR 412.3e].: Yes Medical Necessity: Significant Comorbidiites Make Outpatient Treatment Too Risky , Need for IV Antibiotics Post Hospital Care: D/C Adult Education Instructor Documentation
[2016-12-12] MEDS: PIPERACILLIN SODIUM/TAZOBACTAM 3.375 GM in NORMAL SALINE 100 ML IV SCH ×2 (12:10→18:54)
[2016-12-12] MEDS ORDERED: BUPIVACAINE HCL 0.25 % INJ/PF (2.5 MG/1 ML) 30 ML VIAL ONE (16:03)
[2016-12-12] MEDS ORDERED: FENTANYL CITRATE INJ/PF 250 MCG/5 ML AMPULE ONE (16:05)
[2016-12-12] MEDS ORDERED: PROPOFOL INJ 200 MG/20 ML VIAL IV ONE (16:06)
[2016-12-12] MEDS ORDERED: ACETAMINOPHEN 0 ML IV ONE (16:06)
[2016-12-12] MEDS ORDERED: MIDAZOLAM 2 MG/2 ML INJ ONE (16:06)
[2016-12-12] MEDS ORDERED: MORPHINE SULFATE 10 MG/ML INJ ONE (16:07)
[2016-12-12] MEDS ORDERED: CEFAZOLIN INJ 1 GM VIAL ONE (16:21)
--- NOTE | 2016-12-12 16:50 | Operative Report ---
Operative Report DATE OF SURGERY: 12/12/16 PREOPERATIVE DIAGNOSIS: Wound cellulitis POSTOPERATIVE DIAGNOSIS: Wound abscess with cellulitis OPERATION: Incision and drainage of wound abscess SURGEON: WILNER AGUSTIN POURER OFF: TORSTEN MAYNARD ANESTHESIA: GA TISSUE REMOVED OR ALTERED: None COMPLICATIONS: None ESTIMATED BLOOD LOSS: none INTRAOPERATIVE FINDINGS: Small wound abscess and a midline incision above the fascia. The fascia is intact PROCEDURE: Patient was taken the OR and placed in supine position. Anesthesia was induced. Her abdomen was prepared and draped in sterile fashion. Her Pfannenstiel incision was opened in the midline opening the wound abscess. The fascia was intact. Some subcutaneous sutures were removed. The area was rinsed with saline and divided. The tissue appears healthy. The cavity was then packed with iodoform gauze. The packing material placed was in one continuous piece. The wound was dressed. She is extubated and taken to recovery room stable condition. The length of the wound incision was approximately 9 cm.
[2016-12-12] MEDS: IBUPROFEN 800 MG TABLET PO SCH (18:53)
[2016-12-12] MEDS ORDERED: HYDROMORPHONE HCL INJ/PF 2 MG/ML AMPULE IV PRN (21:00)
[2016-12-12] MEDS: ARIPIPRAZOLE 5 MG TABLET PO SCH (22:13)
[2016-12-13] MEDS: PIPERACILLIN SODIUM/TAZOBACTAM 3.375 GM in NORMAL SALINE 100 ML IV SCH ×5 (05:49→17:24)
[2016-12-13] MEDS: OXYCODONE-ACETAMINOPHEN 5-325 MG TABLET PO PRN ×3 (05:49→21:56)
[2016-12-13] MEDS: LEVOTHYROXINE SODIUM 0.15 MG TABLET PO SCH (05:50)
[2016-12-13] MEDS: RINGERS SOLUTION,LACTATED 1,000 ML IV PRN ×2 (05:51→15:02)
[2016-12-13 05:56] LABS: ABSOLUTE EOSINOPHILS # (AUTO) 0.4 10^3/uL (0.0-0.6); ABSOLUTE LYMPHOCYTES (AUTO) 0.7 10^3/uL (0.5-4.7); ABSOLUTE MONOCYTES (AUTO) 0.2 10^3/uL (0.1-1.4); ABSOLUTE NEUT (AUTO) 7.1 10^3/uL (1.7-8.2); BASOPHILS % (AUTO) 0.3 % (0-2); EOSINOPHILS % (AUTO) 4.3 % (0-6); HEMATOCRIT 36.3 % (36.0-47.0); HEMOGLOBIN 12.3 g/dL (12.0-15.5); HGB HCT DIFFERENCE 0.6; LYMPHOCYTES % (AUTO) 8.1 % (13-45); MEAN CORPUSCULAR HEMOGLOBIN 31.4 pg (27.0-33.4); MEAN CORPUSCULAR VOLUME 92 fl (80-97); MONOCYTES % (AUTO) 2.2 % (3-13); RED BLOOD COUNT 3.93 10^6/uL (3.72-5.28); RED CELL DISTRIBUTION WIDTH 13.7 % (11.5-14.0); SEGMENTED NEUTROPHILS % (AUTO) 85.1 % (42-78); WHITE BLOOD COUNT 8.3 10^3/uL (4.0-10.5)
[2016-12-13] MEDS: MELOXICAM 15 MG TABLET PO SCH (09:37)
[2016-12-13] MEDS: SERTRALINE HCL 50 MG TABLET PO SCH (09:37)
[2016-12-13] MEDS: IBUPROFEN 800 MG TABLET PO SCH ×2 (09:38→17:24)
[2016-12-13] MEDS: ESTROGENS,CONJUGATED 0.625 MG TABLET PO SCH (09:38)
[2016-12-13] MEDS: LISINOPRIL 10 MG TABLET PO SCH (09:51)
[2016-12-13] MEDS: HYDROCHLOROTHIAZIDE 25 MG TABLET PO SCH (09:51)
[2016-12-13] MEDS ORDERED: NORETHINDRONE ACETATE 5 MG PO SCH (10:00)
[2016-12-13] MEDS ORDERED: (PENDING PHARMACY ID) (Lisinopril/Hydrochlorothiazide [Zestoretic 20-25 Mg Tablet] 1 TAB) PO SCH (10:00)
[2016-12-13] MEDS ORDERED: LEVOTHYROXINE SODIUM PO SCH (10:00)
--- NOTE | 2016-12-13 11:35 | PDOC PROGRESS REPORT ---
Subjective Progress Note for:: 12/13/16 Subjective:: She has hot and cold spells. Physical Exam - Physical Exam Vital Signs: Temp Pulse Resp BP Pulse Ox 100.2 F 93 20 91/52 L 94 12/13/16 08:09 12/13/16 08:09 12/13/16 08:09 12/13/16 08:09 12/13/16 08:09 Intake & Output 12/12/16 12/13/16 12/14/16 06:59 06:59 06:59 Intake Total 3200 Output Total 65 Balance 3135 Weight 130.4 kg General appearance: PRESENT: mild distress - The dressing and packing was removed. The tissue looks healthy and pink. The wound was repacked. Result Laboratory Results: 12/13/16 05:42 12/13/16 05:42 WBC 8.3 RBC 3.93 Hgb 12.3 Hct 36.3 MCV 92 MCH 31.4 MCHC 34.0 RDW 13.7 Plt Count 193 Seg Neutrophils % 85.1 H Lymphocytes % 8.1 L Monocytes % 2.2 L Eosinophils % 4.3 Basophils % 0.3 Absolute Neutrophils 7.1 Absolute Lymphocytes 0.7 Absolute Monocytes 0.2 Absolute Eosinophils 0.4 Absolute Basophils 0.0 Impressions: Abdomen/Pelvis CT 12/11/16 18:32 IMPRESSION: Small 2 x 3 cm fluid pockets are present left and right of midline in the subcutaneous soft tissue near the previous incision. No definite abscess. Otherwise no acute intra-abdominal findings. Assessment & Plan - Diagnosis (1) Cellulitis, wound, post-operative Qualifiers: Encounter type: subsequent encounter Qualified Code(s): T81.4XXD - Infection following a procedure, subsequent encounter Is this a current diagnosis for this admission?: Yes - Time Time Spent with patient: 15-24 minutes Anticipated discharge: Home with Homehealth Within: within 48 hours - Will continue abx. Cultures may be back tomorrow.
[2016-12-13] MEDS: ARIPIPRAZOLE 5 MG TABLET PO SCH (21:56)
[2016-12-13] MEDS: ZOLPIDEM TARTRATE 5 MG TABLET PO PRN (21:56)
[2016-12-14] MEDS: PIPERACILLIN SODIUM/TAZOBACTAM 3.375 GM in NORMAL SALINE 100 ML IV SCH ×5 (00:09→23:09)
[2016-12-14] MEDS: RINGERS SOLUTION,LACTATED 1,000 ML IV PRN ×3 (00:13→20:41)
[2016-12-14] MEDS: LEVOTHYROXINE SODIUM 0.15 MG TABLET PO SCH (05:04)
[2016-12-14] MEDS: SERTRALINE HCL 50 MG TABLET PO SCH (09:19)
[2016-12-14] MEDS: OXYCODONE-ACETAMINOPHEN 5-325 MG TABLET PO PRN (09:19)
[2016-12-14] MEDS: IBUPROFEN 800 MG TABLET PO SCH ×2 (09:20→17:51)
[2016-12-14] MEDS: HYDROCHLOROTHIAZIDE 25 MG TABLET PO SCH (09:21)
[2016-12-14] MEDS: MELOXICAM 15 MG TABLET PO SCH (09:21)
[2016-12-14] MEDS: LISINOPRIL 10 MG TABLET PO SCH (09:21)
[2016-12-14] MEDS: ESTROGENS,CONJUGATED 0.625 MG TABLET PO SCH (09:24)
[2016-12-14] MEDS ORDERED: HYDROCODONE/ACETAMINOPHEN 5-325 MG TABLET PO PRN (12:23)
--- NOTE | 2016-12-14 14:09 | PDOC PROGRESS REPORT ---
Subjective Progress Note for:: 12/14/16 Subjective:: Still with pain above incision. Physical Exam - Physical Exam Vital Signs: Temp Pulse Resp BP Pulse Ox 98.3 F 59 L 18 111/68 98 12/14/16 11:46 12/14/16 11:46 12/14/16 11:46 12/14/16 11:46 12/14/16 11:46 Intake & Output 12/13/16 12/14/16 12/15/16 06:59 06:59 06:59 Intake Total 3200 1230 Output Total 65 Balance 3135 1230 General appearance: PRESENT: no acute distress Additional comments: base of wound clean with some granualtion tissue-repacked, cellulitis present for approx 10 cm superior to wound-tender Result Laboratory Results: 12/13/16 05:42 12/12/16 16:33 Abdomen - Abscess Gram Stain - Final 12/12/16 16:33 Abdomen - Abscess Wound Culture - Final Staphylococcus Aureus No Anaerobic Organisms Impressions: Abdomen/Pelvis CT 12/11/16 18:32 IMPRESSION: Small 2 x 3 cm fluid pockets are present left and right of midline in the subcutaneous soft tissue near the previous incision. No definite abscess. Otherwise no acute intra-abdominal findings. Assessment & Plan - Diagnosis (1) Cellulitis Plan: cont iv zosyn. Add diflucan. Case d/w discharge planning-will see if qualifies for wound vac at home. Area of cellulitis outlined.
[2016-12-14] MEDS: HYDROCODONE/ACETAMINOPHEN 5-325 MG TABLET PO PRN ×2 (16:11→23:05)
[2016-12-14] MEDS: VARENICLINE TARTRATE 1 MG TABLET PO SCH (17:51)
[2016-12-14] MEDS: ZOLPIDEM TARTRATE 5 MG TABLET PO PRN (23:05)
[2016-12-14] MEDS: ARIPIPRAZOLE 5 MG TABLET PO SCH (23:06)
[2016-12-15 04:02] VITALS: BP 95/49
[2016-12-15] MEDS: LEVOTHYROXINE SODIUM 0.15 MG TABLET PO SCH (05:58)
[2016-12-15] MEDS: PIPERACILLIN SODIUM/TAZOBACTAM 3.375 GM in NORMAL SALINE 100 ML IV SCH ×2 (05:59→11:33)
--- NOTE | 2016-12-15 09:40 | PDOC PROGRESS REPORT ---
Subjective Progress Note for:: 12/15/16 Subjective:: she is feeling much better. Home tonight. Physical Exam - Physical Exam Vital Signs: Temp Pulse Resp BP Pulse Ox 97.8 F 85 18 95/49 L 95 12/15/16 03:13 12/15/16 03:13 12/15/16 03:13 12/15/16 03:13 12/15/16 03:13 Intake & Output 12/14/16 12/15/16 12/16/16 06:59 06:59 06:59 Intake Total 1230 2675 Balance 1230 2675 General appearance: PRESENT: no acute distress Head exam: PRESENT: atraumatic, normocephalic - The cellulitis in the pannus has lessened. The wound vac is in place. Result Laboratory Results: 12/13/16 05:42 12/12/16 10:25 Abdomen - Incision Site Gram Stain - Final 12/12/16 10:25 Abdomen - Incision Site Wound Culture - Final Staphylococcus Aureus Skin Cee No Anaerobic Organisms 12/12/16 16:33 Abdomen - Abscess Gram Stain - Final 12/12/16 16:33 Abdomen - Abscess Wound Culture - Final Staphylococcus Aureus No Anaerobic Organisms Impressions: Abdomen/Pelvis CT 12/11/16 18:32 IMPRESSION: Small 2 x 3 cm fluid pockets are present left and right of midline in the subcutaneous soft tissue near the previous incision. No definite abscess. Otherwise no acute intra-abdominal findings. Assessment & Plan - Diagnosis (1) Cellulitis, wound, post-operative Qualifiers: Encounter type: subsequent encounter Qualified Code(s): T81.4XXD - Infection following a procedure, subsequent encounter Is this a current diagnosis for this admission?: Yes (2) Abscess Is this a current diagnosis for this admission?: YesPlan: She will be discharged to home with the wound vac and home health. Continue oral Bactrim bid. Continue pain vicodin as needed for pain. Followup next week in the office. - Time Time Spent with patient: 15-24 minutes
[2016-12-15] MEDS: SERTRALINE HCL 50 MG TABLET PO SCH (09:44)
[2016-12-15] MEDS: IBUPROFEN 800 MG TABLET PO SCH (09:44)
[2016-12-15] MEDS: ESTROGENS,CONJUGATED 0.625 MG TABLET PO SCH (09:45)
[2016-12-15] MEDS: VARENICLINE TARTRATE 1 MG TABLET PO SCH (09:45)
[2016-12-15] MEDS ORDERED: FLUCONAZOLE 100 MG TABLET PO SCH (10:00)
--- NOTE | 2016-12-15 10:37 | DISCHARGE SUMMARY E ---
Discharge Summary NAME: MORELIA SR : 1980 AGE: 36Y ADMITTED: 12/11/2016 DISCHARGED: 12/15/2016 PROCEDURE: On 12/12, incision and drainage of a wound abscess. NARRATIVE: Patient was admitted with a wound abscess approximately a month after hysterectomy. She was taken to the OR and the wound was drained and packed. She was kept on IV antibiotics. On postop day one, she did have a fever. Postop day 2, she was afebrile and has been since that time. A wound VAC has been placed at the incision and it appears to be healing well and the surrounding cellulitis has lessened tremendously. Cultures showed a Staph aureus infection, which is sensitive to Bactrim. She will be sent home today on Bactrim as well as Vicodin for pain control. She will have home health for wound VAC and/or dressing changes. She will follow up in 1 week. CONDITION ON DISCHARGE: Good. DICTATING PHYSICIAN: WILNER CAI M.D. [id number] PHY#: [id number] ID: [id number] JOB#: [id number] ACCT: [id number] cc:Mercedez TEJEDA M.D. >
[2016-12-15] MEDS: HYDROCHLOROTHIAZIDE 25 MG TABLET PO SCH (11:18)
[2016-12-15] MEDS: LISINOPRIL 10 MG TABLET PO SCH (11:18)
[2016-12-15] MEDS: RINGERS SOLUTION,LACTATED 1,000 ML IV PRN (11:33)
== END 2016-12-15 17:50 | disposition home or self-care (01) | DRG 863 ==
LOC: ER 18:11 → UNDOADMIN 20:34 → EH 20:34 → 2N 21:36
PROVIDERS: ADMIT Obstetrics & Gynecology; ATTEND Obstetrics & Gynecology
PROC: 0W9F3ZZ Drainage of Abdominal Wall, Percutaneous Approach (ICD-10-PCS; principal; 2016-12-12 16:00)
DX: T81.4XXA Infection following a procedure, initial encounter (principal); L02.211 Cutaneous abscess of abdominal wall; B95.61 Methicillin susceptible Staphylococcus aureus infection as the cause of diseases classified elsewhere; I10 Essential (primary) hypertension; M19.90 Unspecified osteoarthritis, unspecified site; E03.9 Hypothyroidism, unspecified; J45.909 Unspecified asthma, uncomplicated; F32.9 Major depressive disorder, single episode, unspecified; F17.210 Nicotine dependence, cigarettes, uncomplicated
CPT/HCPCS: 36415; 74177; 800; 80053; 81001; 83690; 85025; 85610; 85730; 87070; 87075; 87077; 87186; 87205; J0131; J0295; J0330; J0690; J1170; J2250; J2270; J2405; J2543; J2704; J2765; J3010; J3370; J3490; J7030; J7120